=== PATIENT | female | born 1980 | race Caucasian/White ===

== ENCOUNTER 2019-12-10 22:18 | Emergency (ER) | payer OTHER ==
[2019-12-10 23:11] VITALS: BP 110/64; PULSE 68; TEMP 97.8; BMI 23.3
[2019-12-11 00:12] LABS: HCG,QUALITATIVE URINE Negative
[2019-12-11 00:41] LABS: URINE APPEARANCE Cloudy; URINE BILIRUBIN 1+ (NEGATIVE); URINE COLOR Amber; URINE GLUCOSE (UA) Negative (NEGATIVE); URINE KETONE Trace (NEGATIVE); URINE LEUK ESTERASE 1+ (NEGATIVE); URINE NITRITE Negative (NEGATIVE); URINE PROTEIN 2+ (NEGATIVE)
--- NOTE | 2019-12-11 00:46 | PDOC ---
History of Present Illness - General Chief Complaint: Hematuria Stated Complaint: BLOOD IN URINE Time Seen by Provider: 12/11/19 00:02 History Source: Patient - History of Present Illness Initial Comments: 12/11/19 00:50 39-year-old female complaining of dysuria, frequency of urination and hematuria starting for the last 2 to 3 days. patient reports that symptoms are getting worse. Denies flank pain, nausea, vomiting, abdominal pain, vaginal discharge, vaginal symptoms No past medical history Past History - Past Medical History Allergies/Adverse Reactions: Allergies Allergy/AdvReac Type Severity Reaction Status Date / Time No Known Allergies Allergy Verified 06/30/16 16:20 Home Medications: Ambulatory Orders Cefdinir [Omnicef -] 300 mg PO BID #14 capsule 06/30/16 metroNIDAZOLE 0.75% VAG. GEL [Metrogel 0.75% *Vaginal Gel* -] 1 applic VG HS #1 tube 06/30/16 Cephalexin Monohydrate [Keflex -] 500 mg PO BID #20 capsule 12/11/19 Phenazopyridine HCl [Pyridium] 100 mg PO TID #6 tablet 12/11/19 Asthma: No Cancer: No Cardiac Disorders: No COPD: No Diabetes: No HTN: No Seizures: No Thyroid Disease: No - Immunization History Td Vaccination: No TDAP Vaccination: No Immunization Up to Date: Yes - Psycho Social/Smoking Cessation Hx Smoking Status: No Smoking History: Never smoked Have you smoked in the past 12 months: No Number of Cigarettes Smoked Daily: 0 Information on smoking cessation initiated: No Hx Alcohol Use: Yes Drug/Substance Use Hx: No Substance Use Type: None Hx Substance Use Treatment: No Review of Systems - Review of Systems Able to Perform ROS?: Yes Is the patient limited Wolof proficient: No Constitutional: No: Symptoms Reported, See HPI, Chills, Diaphoresis, Fever, Loss of Appetite, Malaise, Night Sweats, Weakness, Weight Stable, Unintentional Wgt. Loss, Unexplained wgt Loss, Other : Yes: Burning, Dysuria, Frequency, Hematuria *Physical Exam - Vital Signs Last Vital Signs Temp Pulse Resp BP Pulse Ox 97.8 F 68 18 110/64 100 12/10/19 22:25 12/10/19 22:25 12/10/19 22:25 12/10/19 22:25 12/10/19 22:25 - Physical Exam General Appearance: Yes: Appropriately Dressed Respiratory/Chest: positive: Lungs Clear, Normal Breath Sounds Gastrointestinal/Abdominal: positive: Normal Bowel Sounds, Soft. negative: Tender Musculoskeletal: negative: CVA Tenderness Extremity: positive: Normal Capillary Refill, Normal Inspection, Normal Range of Motion Integumentary: positive: Normal Color, Dry, Warm Neurologic: positive: Fully Oriented, Alert, Normal Mood/Affect ED Treatment Course - ADDITIONAL ORDERS Additional order review: Laboratory Results 12/10/19 23:56 Urine Color Sarah Urine Appearance Cloudy Urine pH 6.0 Ur Specific [place] >= 1.030 Urine Protein 2+ H Urine Glucose (UA) Negative Urine Ketones Trace Urine Blood 3+ H Urine Nitrite Negative Urine Bilirubin 1+ H Urine Urobilinogen 1.0 Ur Leukocyte Esterase 1+ H Urine HCG, Qual Negative ED Progress Note - Progress Note Progress Note: 12/11/19 03:10 A: uti P: UA urine culture cephalexin pyridium Discharge - Discharge Information Problems reviewed: Yes Clinical Impression/Diagnosis: UTI (urinary tract infection) Qualifiers: Urinary tract infection type: acute cystitis Hematuria presence: with hematuria Qualified Code(s): N30.01 - Acute cystitis with hematuria Disposition: HOME - Additional Discharge Information Prescriptions: Cephalexin Monohydrate [Keflex -] 500 mg PO BID #20 capsule Phenazopyridine HCl [Pyridium] 100 mg PO TID #6 tablet - Follow up/Referral Referrals: Grecia Marcelo MD [Primary Care Provider] - - Patient Discharge Instructions Patient Printed Discharge Instructions: Urinary Tract Infection Additional Instructions: Drink plenty of fluids Take ibuprofen every 6 hours as needed for pain You may take Pyridium for the burning of urination. it can turn year her urine orange and can make you sweat orange Take cephalexin as prescribed Follow-up with your primary care doctor as soon as possible. You need to repeat urine test once your antibiotic is completed. We will call you if you're antibiotic needs to be changed. - Post Discharge Activity Work/Back to School Note: Back to Work
[2019-12-11] MEDS ORDERED: CEPHALEXIN MONOHYDRATE 500 MG CAPSULE (UD) PO ONE (00:50)
[2019-12-11] MEDS ORDERED: PHENAZOPYRIDINE HCL 100 MG TABLET (FP) PO ONE (00:50)
[2019-12-11] MEDS ORDERED: CEPHALEXIN MONOHYDRATE 500 MG CAPSULE (UD) ONE (00:55)
[2019-12-11] MEDS ORDERED: PHENAZOPYRIDINE HCL 100 MG TABLET (FP) ONE (00:55)
== END 2019-12-11 01:03 | disposition home or self-care (01) ==
LOC: JER 22:18
DX: N30.01 Acute cystitis with hematuria (principal)
CPT/HCPCS: 81003; 84703; 99283-25

== ENCOUNTER 2020-06-11 19:45 | Emergency (ER) | payer OTHER ==
[2020-06-11 19:59] VITALS: BP 110/64; TEMP 97.9; BMI 22.8
--- NOTE | 2020-06-11 19:59 | PDOC ---
Rapid Medical Evaluation Time Seen by Provider: 06/11/20 19:55 Medical Evaluation: Allergies Allergy/AdvReac Type Severity Reaction Status Date / Time No Known Allergies Allergy Verified 06/30/16 16:20 06/11/20 19:57 I performed a brief in-person evaluation of this patient. 39 y/o female with chest pressure x 4 days. States today it got worse and she began to feel short of breath. She denies any past medical history or allergies to medications. No recent travel, no OCPs, no covid contacts. Pertinent physical exam findings: S1S2, clear lungs, chest pain not reproducible. I have ordered the following: cardiac work up, ekg, cxr Patient to proceed to ED for further evaluation. Discharge Disposition - Diagnosis Chest pressure - Referrals - Patient Instructions - Post Discharge Activity
--- NOTE | 2020-06-11 21:42 | PDOC ---
History of Present Illness - General Chief Complaint: Chest Pain Stated Complaint: HEADACHE/CHEST PRESSURE Time Seen by Provider: 06/11/20 19:55 - History of Present Illness Initial Comments: 06/11/20 21:41 39yoF p/w 3days of substernal chest pressure. 1 wk ago she developed a fever and had some increased stool frequency and a cough. This lasted until 4 days ago. Those have resolved, but she now has had this worsening chest pressure. She does not know what brings it on or resolves it. She denies any symptoms besides the chest pressure today. She does not know if eating makes it worse or better. Denies vomiting, recent travel or periods of being sedentary. Denies hemoptysis. Denies OCP. no calf pain. No allergies, no meds. last intake was this evening. 06/11/20 21:43 Past History - Medical History Allergies/Adverse Reactions: Allergies Allergy/AdvReac Type Severity Reaction Status Date / Time No Known Allergies Allergy Verified 06/30/16 16:20 Home Medications: Ambulatory Orders Cefdinir [Omnicef -] 300 mg PO BID #14 capsule 06/30/16 metroNIDAZOLE 0.75% VAG. GEL [Metrogel 0.75% *Vaginal Gel* -] 1 applic VG HS #1 tube 06/30/16 Cephalexin Monohydrate [Keflex -] 500 mg PO BID #20 capsule 12/11/19 Phenazopyridine HCl [Pyridium] 100 mg PO TID #6 tablet 12/11/19 Asthma: No Cancer: No Cardiac Disorders: No COPD: No Diabetes: No HTN: No Seizures: No Thyroid Disease: No - Reproductive History Is Patient Now?: No - Immunization History Td Vaccination: No TDAP Vaccination: No Immunization Up to Date: Yes - Psycho-Social/Smoking History Smoking Status: No Smoking History: Never smoked Have you smoked in the past 12 months: No Number of Cigarettes Smoked Daily: 0 - Substance Abuse Hx (Audit-C & DAST Scrn) How often the patient has a drink containing alcohol: Monthly or less Number of drinks the patient has on a typical day: 3 or 4 How often the patient has six or more drinks on one occasion: Never Score: In Men: 4 or > Positive; In Women: 3 or > Positive: 2 Screen Result (Pos requires Nsg. Audit-10AR): Negative In the last yr the pt used illegal drug/Rx for NonMed reason: No Score: Yes response is considered Positive: 0 Screen Result (Positive result requires Nsg. DAST-10): Negative Review of Systems - Review of Systems Able to Perform ROS?: Yes Is the patient limited Georgian proficient: No Constitutional: Yes: Fever, Malaise. No: Chills, Unintentional Wgt. Loss, Unexplained wgt Loss HEENTM: No: Blurred Vision, Recent change in vision, Nose Congestion, Nose Bleeding, Difficulty Swallowing Respiratory: Yes: Cough, Shortness of Breath. No: Productive cough, Hemoptysis Cardiac (ROS): Yes: Chest Pain, Chest Tightness. No: Edema, Lightheadedness, Palpitations, Syncope ABD/GI: Yes: Difficulty Swallowing, Nausea. No: Abd. Pain w/ defecation, Constipated, Diarrhea, Poor Fluid Intake, Vomiting, Abdominal cramping : No: Symptoms Reported Musculoskeletal: No: Muscle Pain, Muscle Weakness Integumentary: No: Dryness, Lesions, Lumps, Rash Neurological: Yes: Headache. No: Numbness, Weakness, Dizziness Endocrine: No: Excessive Sweating, Intolerance to Heat *Physical Exam - Vital Signs Last Vital Signs Temp Pulse Resp BP Pulse Ox 97.9 F 65 19 110/64 100 06/11/20 19:56 06/12/20 00:28 06/11/20 19:56 06/11/20 19:56 06/12/20 00:28 - Physical Exam General Appearance: Yes: Nourished, Appropriately Dressed. No: Apparent Distress, Disheveled HEENT: positive: EOMI, Normal Voice. negative: Nasal Congestion, Rhinorrhea Neck: positive: Trachea midline, Supple. negative: Tender Respiratory/Chest: positive: Chest Tender, Lungs Clear, Normal Breath Sounds. negative: Respiratory Distress, Labored Respiration, Rapid RR, Crackles, Rales, Rhonchi, Stridor, Wheezing, Hyperresonant, Dullness Cardiovascular: positive: Regular Rhythm, S1, S2, Bradycardia. negative: Gallop/S3, Gallop/S4 Gastrointestinal/Abdominal: positive: Normal Bowel Sounds, Soft. negative: Tender, Guarding, Rebound, Tenderness Musculoskeletal: positive: Normal Inspection. negative: CVA Tenderness Extremity: positive: Normal Capillary Refill, Normal Inspection. negative: Coldness, Pedal Edema, Swelling, Calf Tenderness Integumentary: positive: Normal Color, Dry, Warm Neurologic: positive: Fully Oriented, Alert, Normal Mood/Affect, Normal Response Heart Score/ECG Review - History History: Moderately suspicious - Electrocardiogram EKG: Normal - Age Age: </= 45 - Risk Factors Risk Factors Heart Score: Yes Positive family hx of cardiac disease Based on the list above the patient has:: 1-2 risk factors - Troponin Troponin: </= normal limit - Score Heart Score - Total: 2 - ECG Intrepretation Rhythm: Regular Rhythm - [place]: Normal - ECG Impressions Normal ECG: Yes ED Treatment Course - LABORATORY CBC & Chemistry Diagram: 06/11/20 20:59 06/11/20 20:59 - ADDITIONAL ORDERS Additional order review: Laboratory Results 06/11/20 06/11/20 20:59 20:59 PT with INR 10.70 INR 0.91 PTT (Actin FS) 30.1 Sodium 141 Potassium 3.9 Chloride 108 H Carbon Dioxide 28 Anion Gap 5 L BUN 15.0 Creatinine 0.8 Est GFR (CKD-EPI)AfAm 107.64 Est GFR (CKD-EPI)NonAf 92.87 Random Glucose 78 Calcium 8.4 L Magnesium 2.3 Total Bilirubin 0.6 AST 14 L ALT 17 Alkaline Phosphatase 57 Creatine Kinase 102 Troponin I < 0.02 Total Protein 7.3 Albumin 3.7 06/11/20 20:59 RBC 4.32 MCV 91.1 MCHC 33.4 RDW 13.2 MPV 9.0 Neutrophils % 54.6 D Lymphocytes % 33.0 D Monocytes % 9.9 Eosinophils % 1.9 D Basophils % 0.6 - Medications Given in the ED: ED Medications Discontinued Medications Generic Name Dose Route Start Last Admin Trade Name Freq PRN Reason Stop Dose Admin Acetaminophen 1,000 mg 06/11/20 21:49 06/11/20 22:21 Ofirmev Injection - IVPB 06/11/20 21:50 1,000 mg ONCE ONE Administration Ketorolac Tromethamine 15 mg 06/11/20 23:01 06/12/20 00:23 Toradol Injection - IVPUSH 06/11/20 23:02 15 mg ONCE ONE Administration Lactated Ringer's 1,000 ml 06/11/20 21:49 06/11/20 22:20 Lactated Ringers Solution IV 06/11/20 21:50 Not Given ONCE ONE Lidocaine 1 patch 06/11/20 22:18 06/11/20 22:56 Lidoderm Patch - TP 06/11/20 22:19 1 patch ONCE ONE Administration Metoclopramide HCl 10 mg 06/11/20 21:49 06/11/20 22:21 Reglan Injection - IVPUSH 06/11/20 21:50 10 mg ONCE ONE Administration Miscellaneous 1 each 06/11/20 22:00 06/11/20 22:56 Lidoderm Patch Removal MC Not Given DAILY@2200 SOLANGE Sodium Chloride 1,000 ml 06/11/20 21:49 06/11/20 22:20 Normal Saline - IV 06/11/20 21:50 1,000 ml ONCE ONE Administration Medical Decision Making - Medical Decision Making 06/11/20 22:31 Cx pressure w/ FHx cardiac issues -> ACS r/o 1wk feces changes + cough -> Cx pressure -> COVID swab 06/11/20 22:32 06/11/20 23:50 Feels better at reassess. will d/c w/ instx to f/u Discharge - Discharge Information Problems reviewed: Yes Clinical Impression/Diagnosis: Chest pressure Condition: Improved Disposition: HOME - Admission No - Follow up/Referral Referrals: Grecia Marcelo MD [Primary Care Provider] - - Patient Discharge Instructions Patient Printed Discharge Instructions: DI for Atypical Chest Pain, DI for Ch est Pain Additional Instructions: You came to the ED with 3days of chest pressure. We tested your blood, measured your heart rhythm, and took an Xray of your chest. We also swabbed your nose for COVID. The blood work, xray, and heart rhythm all looked normal to us. You will receive a call within 5 days with your COVID results. We also gave you some medicine, to which you responded well. Please follow up with your primary doctor within 48hours of leaving the ED, and please come back if any concerning symptoms arise or persist. - Post Discharge Activity
[2020-06-11] MEDS ORDERED: SODIUM CHLORIDE 0.9% 1000 ML INFUS.BAG IV ONE (21:49)
[2020-06-11] MEDS ORDERED: METOCLOPRAMIDE HCL INJECTION 10 MG/2 ML VIAL IVPUSH ONE (21:49)
[2020-06-11] MEDS ORDERED: LACTATED RINGERS SOLUTION 1000 ML INFUS.BAG IV ONE (21:49)
[2020-06-11] MEDS ORDERED: ACETAMINOPHEN 1000 MG/100 ML VIAL (NON FORMULARY) IVPB ONE (21:49)
[2020-06-11 21:52] LABS: BASO % 0.6 % (0-2.0); EOS % 1.9 % (0-4.5); HEMATOCRIT 39.4 % (32.4-45.2); HEMOGLOBIN 13.1 GM/dL (10.7-15.3); MCH 30.4 pg (25.7-33.7); MCHC 33.4 g/dl (32.0-36.0); MEAN CELL VOLUME 91.1 fl (80-96); MONO % 9.9 % (3.8-10.2); NEUT % 54.6 % (42.8-82.8); PLATELET COUNT 240 K/MM3 (134-434); RBC 4.32 M/mm3 (3.60-5.2); RDW 13.2 % (11.6-15.6)
[2020-06-11 22:00] LABS: INR 0.91 (0.83-1.09); PROTHROMBIN TIME (PATIENT) 10.7 SEC (9.7-13.0)
[2020-06-11] MEDS ORDERED: LIDOCAINE PATCH REMOVAL MC SCH (22:00)
[2020-06-11 22:03] LABS: ACTIVATED PTT 30.1 SECONDS (25.2-36.5)
[2020-06-11] MEDS ORDERED: METOCLOPRAMIDE HCL INJECTION 10 MG/2 ML VIAL ONE (22:11)
[2020-06-11] MEDS ORDERED: ACETAMINOPHEN INJECTION 100 ML IVPB ONE (22:12)
[2020-06-11 22:16] LABS: ALBUMIN 3.7 g/dl (3.4-5.0); ALK PHOS 57 U/L (45-117); ANION GAP 5 MMOL/L (8-16); BILIRUBIN,TOTAL 0.6 mg/dL (0.2-1); CALCIUM 8.4 mg/dL (8.5-10.1); CHLORIDE 108 mmol/L (98-107); CO2 28 mmol/L (21-32); CREATININE 0.8 mg/dL (0.55-1.3); GLUCOSE,RANDOM 78 mg/dL (74-106); MAGNESIUM 2.3 mg/dL (1.8-2.4); POTASSIUM 3.9 mmol/L (3.5-5.1); SGOT/AST 14 U/L (15-37); SGPT/ALT 17 U/L (13-61); SODIUM 141 mmol/L (136-145); TOT PROT 7.3 g/dl (6.4-8.2)
[2020-06-11] MEDS ORDERED: LIDOCAINE 5% TOPICAL PATCH TP ONE (22:18)
[2020-06-11] MEDS ORDERED: LIDOCAINE 5% TOPICAL PATCH ONE (22:22)
[2020-06-11] MEDS ORDERED: KETOROLAC TROMETHAMINE 15 MG/ML VIAL IVPUSH ONE (23:01)
--- NOTE | 2020-06-12 00:09 | PDOC ---
Documentation entered by Sherita Loving SCRIBE, acting as scribe for Tonja Montilla DO. Tonja Montilla DO: This documentation has been prepared by the Inder queen Ana, SCRIBE, under my direction and personally reviewed by me in its entirety. I confirm that the documentation accurately reflects all work, treatment, procedures, and medical decision making performed by me. Attending Attestation - Resident Resident Name: Arturo Younger - ED Attending Attestation I have performed the following: I have examined & evaluated the patient, The case was reviewed & discussed with the resident, I agree w/resident's findings & plan, Exceptions are as noted - HPI HPI: 06/11/20 21:28 Patient is a 39 year old female with no significant past medical history of who presents to the ED with worsening chest pressure x3 days. Patient also reports that last week she had a fever, cough, and an increase in stool frequency which has resolved on its own. Patient denies: vomiting, hemoptysis, cald pain, recent travel, any other related symptoms. Allergies: NKDA . - Physicial Exam PE: 06/11/20 23:03 Gen: aaox3, nad heart: +s1s2 reg, anterior chest wall ttp that reproduces her pain lungs: cta b/l abd: soft, nt/nd +bs ext: no c/c/e, no calf ttp neuro: no focal deficits - Medical Decision Making 06/11/20 23:04 a/p: 39yo female with anterior chest wall pain, cough/fever/hanna 4 days ago -meds given for headache -labs sent, trop neg -no elevated wbc -cxr clear -pt states hanna resolved with meds -anterior reproducible chest wall pain, toradol ordered, FDLMP 05/22, hx of tubal ligation -will monitor and reassess -most likely costochondritis with anterior reproducible chest wall pain 06/11/20 23:06 PERC neg 06/12/20 00:08 pt feels better trop neg stable for dc to home cxr clear Heart Score/ECG Review - ECG Intrepretation Comment:: 06/11/20 23:06 sinus truman at 51, nl axis, nl interval, no acute st/t wave findings Discharge - Discharge Information Problems reviewed: Yes Clinical Impression/Diagnosis: Chest pressure Condition: Improved Disposition: HOME - Admission No - Follow up/Referral Referrals: Grecia Marcelo MD [Primary Care Provider] - - Patient Discharge Instructions Patient Printed Discharge Instructions: DI for Atypical Chest Pain, DI for Chest Pain Additional Instructions: You came to the ED with 3days of chest pressure. We tested your blood, measured your heart rhythm, and took an Xray of your chest. We also swabbed your nose for COVID. The blood work, xray, and heart rhythm all looked normal to us. You will receive a call within 5 days with your COVID results. We also gave you some medicine, to which you responded well. Please follow up with your primary doctor within 48hours of leaving the ED, and please come back if any concerning symptoms arise or persist. - Post Discharge Activity
[2020-06-12] MEDS ORDERED: KETOROLAC TROMETHAMINE 15 MG/ML VIAL ONE (00:14)
[2020-06-12 00:28] VITALS: PULSE 65
--- NOTE | 2020-06-12 12:37 | EKG ---
Test Reason : Blood Pressure : / mmHG Vent. Rate : 051 BPM Atrial Rate : 051 BPM P-R Int : 130 ms QRS Dur : 088 ms QT Int : 444 ms P-R-T Axes : 046 064 038 degrees QTc Int : 409 ms SINUS BRADYCARDIA OTHERWISE NORMAL ECG NO PREVIOUS ECGS AVAILABLE Confirmed by YUKO FITZGERALD MD ([id number]) on 06/12/2020 12:36:53 PM Referred By: Confirmed By:YUKO FITZGERALD MD
== END 2020-06-12 00:31 | disposition home or self-care (01) ==
LOC: JER 19:45
PROC: 3E0333Z Introduction of Anti-inflammatory into Peripheral Vein, Percutaneous Approach (ICD-10-PCS; principal; 2020-06-11)
PROC: 3E033GC Introduction of Other Therapeutic Substance into Peripheral Vein, Percutaneous Approach (ICD-10-PCS; 2020-06-11)
DX: R07.89 Other chest pain (principal)
CPT/HCPCS: 36415; 71046-TC-FY; 80053; 82550; 83735; 84484; 85025; 85610; 85730; 93005; 93010; 99285-25; J0131; U0003

== ENCOUNTER 2022-04-15 23:13 | Emergency (ER) | payer OTHER ==
[2022-04-15 23:32] VITALS: BP 114/73; PULSE 65; TEMP 97.7; BMI 24.1
[2022-04-16 00:27] LABS: EPI CELLS >36 /uL (0-25.1); HYALINE CASTS 23 /uL (0-3.1); PH,URINE 5.5 (5.0-8.0); URINE APPEARANCE CLOUDY; URINE BACTERIA 1176 /uL (0-1359); URINE BILIRUBIN NEGATIVE (NEGATIVE); URINE COLOR YELLOW; URINE GLUCOSE (UA) NEGATIVE (NEGATIVE); URINE KETONE NEGATIVE (NEGATIVE); URINE LEUK ESTERASE 2+ (NEGATIVE); URINE NITRITE NEGATIVE (NEGATIVE); URINE PROTEIN TRACE (NEGATIVE); URINE RBC 14 /uL (0-23.9); URINE UROBILINOGEN 0.2 mg/dL (0.2-1.0); URINE WBC 788 /uL (0-25.8)
[2022-04-16 00:46] LABS: HCG,QUALITATIVE URINE NEGATIVE
[2022-04-16] MEDS ORDERED: FLUCONAZOLE 150 MG TABLET PO ONE ×2 (02:51→02:55)
== END 2022-04-16 03:10 | disposition home or self-care (01) ==
LOC: JER 23:13
DX: N39.0 Urinary tract infection, site not specified (principal)
CPT/HCPCS: 36415; 81003; 84703; 87086; 87491; 87591; 99283-25

== ENCOUNTER 2023-08-15 19:06 | Emergency (ER) | payer OTHER ==
[2023-08-15 19:33] VITALS: BP 116/78; PULSE 50; RESP 18; TEMP 97.9; BMI 23.3
[2023-08-15] MEDS ORDERED: DOXYCYCLINE HYCLATE 100 MG CAPSULE PO ONE ×2 (21:22→21:40)
[2023-08-16 00:27] LABS: PH,URINE 5.5 (5.0-8.0); URINE APPEARANCE CLEAR; URINE BILIRUBIN NEGATIVE (NEGATIVE); URINE COLOR YELLOW; URINE GLUCOSE (UA) NEGATIVE (NEGATIVE); URINE KETONE TRACE (NEGATIVE); URINE LEUK ESTERASE NEGATIVE (NEGATIVE); URINE NITRITE NEGATIVE (NEGATIVE); URINE PROTEIN NEGATIVE (NEGATIVE)
[2023-08-16 00:30] LABS: HCG,QUALITATIVE URINE Negative
== END 2023-08-15 21:40 | disposition home or self-care (01) ==
LOC: JERFT 19:06 → JER 19:06 → JERFT 21:40
PROC: 3E023GC Introduction of Other Therapeutic Substance into Muscle, Percutaneous Approach (ICD-10-PCS; principal; 2023-08-15)
DX: N89.8 Other specified noninflammatory disorders of vagina (principal)
CPT/HCPCS: 81003; 84703; 87070; 87077; 87086; 87205; 99284-25

== ENCOUNTER 2023-12-02 07:05 | Emergency (ER) | payer OTHER ==
[2023-12-02 07:17] VITALS: BP 109/45; PULSE 65; RESP 18; TEMP 98.7; BMI 23.3
[2023-12-02] MEDS ORDERED: cefTRIAXone SODIUM 1 GM VIAL ONE (08:36)
[2023-12-02] MEDS ORDERED: DOXYCYCLINE HYCLATE 100 MG CAPSULE PO ONE (08:43)
[2023-12-02] MEDS: DOXYCYCLINE HYCLATE 100 MG CAPSULE PO ONE (08:50)
[2023-12-02 08:54] LABS: EPI CELLS >36 /uL (0-25.1); HYALINE CASTS 6 /uL (0-3.1); URINE APPEARANCE CLOUDY; URINE BACTERIA 1954 /uL (0-1359); URINE BILIRUBIN NEGATIVE (NEGATIVE); URINE COLOR YELLOW; URINE GLUCOSE (UA) NEGATIVE (NEGATIVE); URINE KETONE NEGATIVE (NEGATIVE); URINE LEUK ESTERASE 2+ (NEGATIVE); URINE NITRITE NEGATIVE (NEGATIVE); URINE PROTEIN NEGATIVE (NEGATIVE); URINE RBC 7 /uL (0-23.9); URINE UROBILINOGEN 0.2 mg/dL (0.2-1.0); URINE WBC 601 /uL (0-25.8)
[2023-12-02 08:56] LABS: HCG,QUALITATIVE URINE Negative
== END 2023-12-02 12:33 | disposition home or self-care (01) ==
LOC: JERFT 07:05
DX: N89.8 Other specified noninflammatory disorders of vagina (principal); R30.0 Dysuria; N76.0 Acute vaginitis; Z11.3 Encounter for screening for infections with a predominantly sexual mode of transmission
CPT/HCPCS: 36415; 81003; 84703; 87070; 87086; 87186; 87205; 87491; 87591; 87661